=== PATIENT | male | born 1945 | race Caucasian/White ===

== ENCOUNTER 2018-05-11 21:00 | Inpatient (IN) | payer OTHER ==
[~2018-05-11] VITALS: Ht 182.9 cm; Wt 107.8 kg
[~2018-05-11 21:00] MED LIST: FURO80TA PO; GAB400C PO
[2018-05-11 22:13] LABS: Basophils # (auto) 0.1 uL; Basophils % (auto) 0.5 % (0.0-2.0); Eosinophils # (auto) 0 uL; Eosinophils % (auto) 0.2 % (0.0-7.0); Hematocrit 43.2 % (41.0-53.0); Lymphocytes # (auto) 1.2 uL; Lymphocytes % (auto) 8.1 % (10.0-50.0); Mean Corpuscular Hemoglobin 33.6 pg (28.0-32.0); Mean Corpuscular Hgb Conc. 34.7 g/dL (32.0-36.0); Mean Corpuscular Volume 96.9 fL (80.0-100.0); Monocytes # (auto) 1.2 uL; Monocytes % (auto) 8.3 % (0.0-12.0); Neutrophils % (auto) 82.9 % (37.0-80.0); Platelet Count (auto) 367 10^3/uL (140-450); Red Blood Cells 4.46 10^6/uL (4.5-5.90); Red Cell Distribution Width 14.3 % (11.8-14.3); White Blood Cell 14.5 10^3/uL (4.4-10.8)
[2018-05-11 22:32] LABS: INR 0.99 (0.9-1.15); Partial Thromboplastin Time 32.1 sec (23.78-33.04); Prothrombin Time 10.6 sec (9.27-12.13)
[2018-05-11 22:35] LABS: Albumin 3.3 g/dL (3.4-5.0); BUN/Creatinine Ratio 25.3; Bilirubin, Total 0.5 mg/dL (0.2-1.0); Total Protein 9.2 g/dL (6.4-8.2)
[2018-05-11 22:46] LABS: Potassium 1.9 mmol/L (3.5-5.1)
[2018-05-11] MEDS ORDERED: POTASSIUM CHL 20 Meq TABLET PO ONE (23:00)
[2018-05-12] MEDS ORDERED: VANCOMYCIN 1GM/250ML 250 ML IV ONE (00:30)
[2018-05-12] MEDS ORDERED: fentaNYL CITRATE 100 MCG/2 ML VL IV ONE (00:30)
[2018-05-12 01:04] LABS: Urine Bacteria NONE SEEN /hpf (None Seen); Urine Blood Negative /uL (Negative); Urine Hyaline Cast FEW /lpf (0 - 2); Urine Specific Gravity 1.017 (1.001-1.035); Urine WBC <1 /hpf (0 - 3)
[2018-05-12 01:16] LABS: Lactic Acid w/Reflex 2.2 mmol/L (0.4-2.0)
[2018-05-12] MEDS: POTASSIUM CHL 20MEQ/100ML 100 ML IV SCH ×2 (02:28→04:40)
[2018-05-12 06:30] LABS: BUN/Creatinine Ratio 29.5; Calcium 11.1 mg/dL (8.5-10.1); Potassium 3.2 mmol/L (3.5-5.1)
[2018-05-12] MEDS ORDERED: cefTRIAXone 1GM/10ml IVPUSH 10 ML IV ONE (09:15)
[2018-05-12] MEDS ORDERED: ONDANSETRON HCL 4 MG/2 ML VIAL IV PRN (09:30)
[2018-05-12] MEDS ORDERED: LACTULOSE 20Gm/30ML SOLN PO PRN (09:30)
[2018-05-12] MEDS ORDERED: DEXTROSE (50%) 50ML SYRG IV PRN (09:30)
[2018-05-12] MEDS: POTASSIUM CHL 20 Meq TABLET PO SCH ×2 (09:40→20:13)
[2018-05-12] MEDS ORDERED: POTASSIUM CHL 20 Meq TABLET PO ONE (09:45)
[2018-05-12] MEDS: ZINC SULFATE 220 MG CAP PO SCH (10:00)
[2018-05-12] MEDS ORDERED: FAMOTIDINE 20 MG TAB PO SCH (10:00)
[2018-05-12] MEDS: FUROSEMIDE 40 MG TAB PO SCH ×2 (10:28→18:07)
[2018-05-12] MEDS: METOPROLOL TARTRATE 25 MG TAB PO SCH ×2 (10:28→20:12)
[2018-05-12] MEDS: CLINDAMYCIN 300MG IV 50 ML IV SCH ×2 (10:28→18:07)
[2018-05-12] MEDS: ASPirin-EC 81 mg tab PO SCH (10:28)
[2018-05-12] MEDS: VENLAFAXINE HCL 37.5mg XR cap PO SCH (10:28)
[2018-05-12] MEDS: METOLAZONE 5 MG TAB PO SCH (10:29)
[2018-05-12] MEDS: ASCORBIC ACID 500 MG TAB PO SCH ×2 (10:29→20:13)
[2018-05-12] MEDS: FAMOTIDINE 20 MG TAB PO SCH (10:29)
[2018-05-12] MEDS: MULTIPLE VITAMIN TAB PO SCH (10:29)
[2018-05-12] MEDS: CALCIUM CARB 500 MG CHEW TAB PO SCH ×2 (10:29→20:12)
[2018-05-12] MEDS: CHOLECALCIFEROL (VITD3) 1,000 UNIT TAB PO SCH (10:29)
[2018-05-12] MEDS: amLODIPine BESYLATE 5 MG TAB PO SCH (10:29)
[2018-05-12] MEDS: ACCU-CHEK COMFORT CURVE STRIP VI SCH ×3 (11:30→21:40)
[2018-05-12] MEDS: InsuLIN REG 1unit/0.01ml Soln (100units/ml) SC SCH ×3 (12:40→21:40)
[2018-05-12] MEDS: SODIUM CHLOR 0.9% PF (SALINE LOCK) 10ML VIAL/SYR IV SCH ×2 (13:43→20:13)
[2018-05-12] MEDS: GABAPENTIN 300 MG CAP PO SCH ×2 (13:43→20:12)
[2018-05-12] MEDS: HYDROcodone-ACET 10/325MG TAB PO PRN (16:16)
[2018-05-12 17:00] VITALS: BP 116/61
[2018-05-12 17:18] VITALS: BP 116/61
[2018-05-12] MEDS: TAMSULOSIN HYDROCHLORIDE 0.4 MG CAP PO SCH (18:07)
[2018-05-12] MEDS ORDERED: VENL37.572 PO (18:48)
[2018-05-12] MEDS ORDERED: FURO40TA4 PO (18:48)
[2018-05-12] MEDS ORDERED: METO2.5T11 PO (18:48)
[2018-05-12] MEDS ORDERED: GABA-339 PO (18:48)
[2018-05-12] MEDS ORDERED: SIMV-8 PO (18:48)
[2018-05-12] MEDS ORDERED: POTA10TA51 PO (18:48)
[2018-05-12] MEDS ORDERED: AMLO5TAB2 PO (18:48)
[2018-05-12] MEDS ORDERED: TAMS0.4C36 PO (18:48)
[2018-05-12] MEDS ORDERED: CHOL20007 OR (18:48)
[2018-05-12] MEDS ORDERED: METO25TA5 PO (18:48)
[2018-05-12] MEDS ORDERED: ASPI81TA27 PO (18:48)
[2018-05-12] MEDS ORDERED: DOCU100T15 PO (18:48)
[2018-05-12] MEDS ORDERED: HYDR-4683 PO (18:48)
[2018-05-12] MEDS: TEMAZEPAM 15 MG CAP PO PRN (20:11)
[2018-05-12] MEDS: ACETAMINOPHEN 325 MG TAB PO PRN (20:13)
[2018-05-12 21:52] VITALS: BP 137/65
[2018-05-12] MEDS ORDERED: ATORVASTATIN 20 MG TAB PO SCH (22:00)
[2018-05-13] MEDS: HYDROcodone-ACET 10/325MG TAB PO PRN ×3 (00:48→22:08)
[2018-05-13] MEDS: CLINDAMYCIN 300MG IV 50 ML IV SCH ×3 (02:28→17:49)
[2018-05-13 04:46] VITALS: BP 135/71
[2018-05-13 05:39] LABS: Basophils # (auto) 0.1 uL; Basophils % (auto) 0.4 % (0.0-2.0); Eosinophils # (auto) 0.1 uL; Eosinophils % (auto) 0.8 % (0.0-7.0); Hematocrit 41.3 % (41.0-53.0); Hemoglobin 14.1 g/dL (13.5-17.5); Lymphocytes # (auto) 1.1 uL; Lymphocytes % (auto) 7.2 % (10.0-50.0); Mean Corpuscular Hemoglobin 33.2 pg (28.0-32.0); Mean Corpuscular Hgb Conc. 34.2 g/dL (32.0-36.0); Mean Corpuscular Volume 97.1 fL (80.0-100.0); Monocytes # (auto) 1.3 uL; Neutrophils # (auto) 13.3 uL; Neutrophils % (auto) 83.6 % (37.0-80.0); Platelet Count (auto) 361 10^3/uL (140-450); Red Blood Cells 4.25 10^6/uL (4.5-5.90); Red Cell Distribution Width 14.5 % (11.8-14.3)
[2018-05-13] MEDS: FUROSEMIDE 40 MG TAB PO SCH (05:49)
[2018-05-13] MEDS: SODIUM CHLOR 0.9% PF (SALINE LOCK) 10ML VIAL/SYR IV SCH ×3 (05:49→22:09)
[2018-05-13] MEDS: ACCU-CHEK COMFORT CURVE STRIP VI SCH ×4 (05:50→22:09)
[2018-05-13] MEDS: GABAPENTIN 300 MG CAP PO SCH ×3 (05:50→22:08)
[2018-05-13] MEDS: ACETAMINOPHEN 325 MG TAB PO PRN (05:50)
[2018-05-13] MEDS: InsuLIN REG 1unit/0.01ml Soln (100units/ml) SC SCH ×4 (05:51→22:09)
[2018-05-13 05:59] LABS: Albumin 2.9 g/dL (3.4-5.0); BUN/Creatinine Ratio 37.1; Bilirubin, Total 0.4 mg/dL (0.2-1.0); Calcium 10.5 mg/dL (8.5-10.1); Total Protein 8.1 g/dL (6.4-8.2)
[2018-05-13] MEDS ORDERED: POTASSIUM CHL 20 Meq TABLET PO ONE ×2 (07:15→13:15)
[2018-05-13 08:25] VITALS: BP 121/68
[2018-05-13] MEDS: cefTRIAXone 1GM/10ml IVPUSH 10 ML IV SCH (08:59)
[2018-05-13] MEDS: ASPirin-EC 81 mg tab PO SCH (08:59)
[2018-05-13] MEDS: VENLAFAXINE HCL 37.5mg XR cap PO SCH (09:00)
[2018-05-13] MEDS: POTASSIUM CHL 20 Meq TABLET PO SCH (09:00)
[2018-05-13] MEDS: METOPROLOL TARTRATE 25 MG TAB PO SCH (09:01)
[2018-05-13] MEDS: MULTIPLE VITAMIN TAB PO SCH (09:01)
[2018-05-13] MEDS: CALCIUM CARB 500 MG CHEW TAB PO SCH (09:02)
[2018-05-13] MEDS: ASCORBIC ACID 500 MG TAB PO SCH ×2 (09:02→22:08)
[2018-05-13] MEDS: FAMOTIDINE 20 MG TAB PO SCH (09:02)
[2018-05-13] MEDS: amLODIPine BESYLATE 5 MG TAB PO SCH (09:02)
[2018-05-13] MEDS: METOLAZONE 5 MG TAB PO SCH (09:03)
[2018-05-13] MEDS: CHOLECALCIFEROL (VITD3) 1,000 UNIT TAB PO SCH (09:03)
[2018-05-13 09:50] LABS: Folate (Folic Acid) 9.3 ng/mL (5.38-24)
[2018-05-13] MEDS: SODIUM CHLORIDE 0.9% 1,000 ML IV SCH (12:15)
[2018-05-13 13:00] VITALS: BP 120/65
[2018-05-13 13:06] LABS: Magnesium 2.8 mg/dL (1.6-2.6)
[2018-05-13 13:10] LABS: Potassium 2.7 mmol/L (3.5-5.1)
[2018-05-13] MEDS ORDERED: POTASSIUM CHLORIDE IV ONE (13:30)
[2018-05-13] MEDS ORDERED: D5W 5% IV ONE (13:30)
[2018-05-13] MEDS: SILVER SULFADIAZINE 1 % TOPICAL CREAM 50GM TOP SCH (14:16)
[2018-05-13] MEDS: POTASSIUM CHL 20MEQ/100ML 100 ML IV SCH ×2 (15:20→17:48)
[2018-05-13] MEDS: ZINC SULFATE 220 MG CAP PO SCH (15:47)
[2018-05-13 17:10] VITALS: BP 117/76
[2018-05-13] MEDS: TAMSULOSIN HYDROCHLORIDE 0.4 MG CAP PO SCH (17:49)
[2018-05-13 22:00] VITALS: BP 114/67
[2018-05-13] MEDS: TEMAZEPAM 15 MG CAP PO PRN (22:09)
[2018-05-14] MEDS: CLINDAMYCIN 300MG IV 50 ML IV SCH ×3 (02:14→17:04)
[2018-05-14] MEDS: GABAPENTIN 300 MG CAP PO SCH ×3 (05:05→21:30)
[2018-05-14] MEDS: SODIUM CHLOR 0.9% PF (SALINE LOCK) 10ML VIAL/SYR IV SCH ×3 (05:05→21:30)
[2018-05-14] MEDS: HYDROcodone-ACET 10/325MG TAB PO PRN ×3 (05:06→21:33)
[2018-05-14 06:02] VITALS: BP 117/70
[2018-05-14 06:05] LABS: BUN/Creatinine Ratio 39.8; Calcium 10.5 mg/dL (8.5-10.1); Magnesium 2.4 mg/dL (1.6-2.6)
[2018-05-14 06:16] LABS: Potassium 2.4 mmol/L (3.5-5.1)
[2018-05-14 06:24] LABS: Basophils # (auto) 0.1 uL; Basophils % (auto) 0.5 % (0.0-2.0); Eosinophils # (auto) 0.2 uL; Eosinophils % (auto) 1.8 % (0.0-7.0); Hematocrit 42.1 % (41.0-53.0); Hemoglobin 14.2 g/dL (13.5-17.5); Lymphocytes # (auto) 1.1 uL; Lymphocytes % (auto) 7.6 % (10.0-50.0); Mean Corpuscular Hemoglobin 32.9 pg (28.0-32.0); Mean Corpuscular Hgb Conc. 33.8 g/dL (32.0-36.0); Mean Corpuscular Volume 97.3 fL (80.0-100.0); Monocytes # (auto) 1.1 uL; Neutrophils # (auto) 11.4 uL; Neutrophils % (auto) 82.1 % (37.0-80.0); Platelet Count (auto) 391 10^3/uL (140-450); Red Blood Cells 4.32 10^6/uL (4.5-5.90); Red Cell Distribution Width 14.5 % (11.8-14.3); White Blood Cell 13.9 10^3/uL (4.4-10.8)
[2018-05-14] MEDS: ACCU-CHEK COMFORT CURVE STRIP VI SCH ×4 (06:45→21:31)
[2018-05-14] MEDS ORDERED: POTASSIUM CHL 20 Meq TABLET PO ONE ×2 (06:45→14:15)
[2018-05-14] MEDS: InsuLIN REG 1unit/0.01ml Soln (100units/ml) SC SCH ×4 (06:45→21:31)
[2018-05-14 09:08] VITALS: BP 104/75
[2018-05-14] MEDS: SODIUM CHLORIDE 0.9% 1,000 ML IV SCH (09:29)
[2018-05-14] MEDS: ASCORBIC ACID 500 MG TAB PO SCH ×2 (09:29→21:30)
[2018-05-14] MEDS: MULTIPLE VITAMIN TAB PO SCH (09:29)
[2018-05-14] MEDS: cefTRIAXone 1GM/10ml IVPUSH 10 ML IV SCH (09:29)
[2018-05-14] MEDS: FAMOTIDINE 20 MG TAB PO SCH (09:29)
[2018-05-14] MEDS: VENLAFAXINE HCL 37.5mg XR cap PO SCH (09:29)
[2018-05-14] MEDS: ASPirin-EC 81 mg tab PO SCH (09:30)
[2018-05-14] MEDS: SILVER SULFADIAZINE 1 % TOPICAL CREAM 50GM TOP SCH (09:30)
[2018-05-14] MEDS: ZINC SULFATE 220 MG CAP PO SCH (09:30)
[2018-05-14] MEDS ORDERED: PANTOPRAZOLE 40 MG TAB PO ONE (12:00)
[2018-05-14 13:00] VITALS: BP 112/62
[2018-05-14] MEDS ORDERED: POTASSIUM CHLORIDE 60 MEQ, LIDOCAINE 1% (LOCAL ANESTH.) 6 ML in SODIUM CHL 0.9% 500 ML IV ONE (14:15)
[2018-05-14] MEDS: POTASSIUM CHL 20MEQ/100ML 100 ML IV SCH ×3 (14:38→21:30)
[2018-05-14] MEDS: DOCUSATE SOD 100 MG CAP PO PRN (17:03)
[2018-05-14] MEDS: TAMSULOSIN HYDROCHLORIDE 0.4 MG CAP PO SCH (17:03)
[2018-05-14 17:18] VITALS: BP 118/62
[2018-05-14 21:30] VITALS: BP 130/72
[2018-05-15] MEDS: TEMAZEPAM 15 MG CAP PO PRN ×2 (00:03→21:31)
[2018-05-15] MEDS: CLINDAMYCIN 300MG IV 50 ML IV SCH ×3 (02:16→16:49)
[2018-05-15] MEDS: HYDROcodone-ACET 10/325MG TAB PO PRN ×3 (02:59→21:31)
[2018-05-15] MEDS: SODIUM CHLORIDE 0.9% 1,000 ML IV SCH (04:04)
[2018-05-15 05:00] VITALS: BP 115/60
[2018-05-15] MEDS: SODIUM CHLOR 0.9% PF (SALINE LOCK) 10ML VIAL/SYR IV SCH ×3 (06:05→21:30)
[2018-05-15] MEDS: GABAPENTIN 300 MG CAP PO SCH ×3 (06:05→21:30)
[2018-05-15] MEDS: ACCU-CHEK COMFORT CURVE STRIP VI SCH ×4 (06:05→21:30)
[2018-05-15] MEDS: InsuLIN REG 1unit/0.01ml Soln (100units/ml) SC SCH ×4 (06:06→21:31)
[2018-05-15 06:39] LABS: Basophils # (auto) 0.1 uL; Basophils % (auto) 0.5 % (0.0-2.0); Eosinophils # (auto) 0.3 uL; Eosinophils % (auto) 2.2 % (0.0-7.0); Hematocrit 36.1 % (41.0-53.0); Hemoglobin 12.4 g/dL (13.5-17.5); Lymphocytes # (auto) 0.9 uL; Lymphocytes % (auto) 7.7 % (10.0-50.0); Mean Corpuscular Hemoglobin 33.4 pg (28.0-32.0); Mean Corpuscular Hgb Conc. 34.3 g/dL (32.0-36.0); Mean Corpuscular Volume 97.3 fL (80.0-100.0); Monocytes # (auto) 0.9 uL; Monocytes % (auto) 7.9 % (0.0-12.0); Neutrophils # (auto) 9.3 uL; Neutrophils % (auto) 81.7 % (37.0-80.0); Platelet Count (auto) 338 10^3/uL (140-450); Red Blood Cells 3.71 10^6/uL (4.5-5.90); Red Cell Distribution Width 14.4 % (11.8-14.3); White Blood Cell 11.3 10^3/uL (4.4-10.8)
[2018-05-15 06:56] LABS: BUN/Creatinine Ratio 38.5; Calcium 8.8 mg/dL (8.5-10.1)
[2018-05-15 07:03] LABS: Potassium 2.2 mmol/L (3.5-5.1)
[2018-05-15] MEDS ORDERED: POTASSIUM CHL 20 Meq TABLET PO ONE ×4 (08:00→16:00)
[2018-05-15] MEDS: cefTRIAXone 1GM/10ml IVPUSH 10 ML IV SCH (08:03)
[2018-05-15 09:00] VITALS: BP 110/68
[2018-05-15] MEDS: ZINC SULFATE 220 MG CAP PO SCH (09:21)
[2018-05-15] MEDS: DOCUSATE SOD 100 MG CAP PO PRN (09:21)
[2018-05-15] MEDS: ASPirin-EC 81 mg tab PO SCH (09:21)
[2018-05-15] MEDS: PANTOPRAZOLE 40 MG TAB PO SCH (09:22)
[2018-05-15] MEDS: ASCORBIC ACID 500 MG TAB PO SCH ×2 (09:22→21:30)
[2018-05-15] MEDS: MULTIPLE VITAMIN TAB PO SCH (09:22)
[2018-05-15] MEDS: VENLAFAXINE HCL 37.5mg XR cap PO SCH (09:23)
[2018-05-15] MEDS: SILVER SULFADIAZINE 1 % TOPICAL CREAM 50GM TOP SCH (09:23)
[2018-05-15] MEDS ORDERED: LACTULOSE 20Gm/30ML SOLN PO ONE (12:15)
[2018-05-15] MEDS: POTASSIUM CHL 20 Meq TABLET PO SCH ×2 (12:26→21:30)
[2018-05-15 13:00] VITALS: BP 117/71
[2018-05-15] MEDS: TAMSULOSIN HYDROCHLORIDE 0.4 MG CAP PO SCH (16:49)
[2018-05-15 17:09] VITALS: BP 119/70
[2018-05-15 22:00] VITALS: BP 127/67
[2018-05-16] MEDS: ACETAMINOPHEN 325 MG TAB PO PRN (01:26)
[2018-05-16] MEDS: CLINDAMYCIN 300MG IV 50 ML IV SCH ×2 (02:15→09:06)
[2018-05-16 05:00] VITALS: BP 137/74
[2018-05-16] MEDS: SODIUM CHLOR 0.9% PF (SALINE LOCK) 10ML VIAL/SYR IV SCH ×3 (06:06→21:26)
[2018-05-16] MEDS: ACCU-CHEK COMFORT CURVE STRIP VI SCH ×4 (06:29→21:26)
[2018-05-16] MEDS: GABAPENTIN 300 MG CAP PO SCH ×3 (06:29→21:24)
[2018-05-16] MEDS: InsuLIN REG 1unit/0.01ml Soln (100units/ml) SC SCH ×4 (06:29→21:39)
[2018-05-16 08:06] LABS: Basophils # (auto) 0.1 uL; Basophils % (auto) 0.4 % (0.0-2.0); Calcium 10.3 mg/dL (8.5-10.1); Eosinophils # (auto) 0.3 uL; Eosinophils % (auto) 1.8 % (0.0-7.0); Hemoglobin 12.8 g/dL (13.5-17.5); Lymphocytes # (auto) 1.1 uL; Mean Corpuscular Hemoglobin 33.1 pg (28.0-32.0); Mean Corpuscular Hgb Conc. 33.7 g/dL (32.0-36.0); Mean Corpuscular Volume 98.2 fL (80.0-100.0); Monocytes # (auto) 1.2 uL; Monocytes % (auto) 8.7 % (0.0-12.0); Neutrophils # (auto) 11.4 uL; Neutrophils % (auto) 81.1 % (37.0-80.0); Nucleated Red Blood Cells % 0.1 %; Platelet Count (auto) 414 10^3/uL (140-450); Red Blood Cells 3.87 10^6/uL (4.5-5.90); Red Cell Distribution Width 14.5 % (11.8-14.3); White Blood Cell 14.1 10^3/uL (4.4-10.8)
[2018-05-16 08:11] LABS: Potassium 2.8 mmol/L (3.5-5.1)
[2018-05-16] MEDS ORDERED: POTASSIUM CHL 20 Meq TABLET PO ONE ×3 (08:45→18:00)
[2018-05-16 09:00] VITALS: BP 131/69
[2018-05-16] MEDS: PANTOPRAZOLE 40 MG TAB PO SCH (09:05)
[2018-05-16] MEDS: ZINC SULFATE 220 MG CAP PO SCH (09:05)
[2018-05-16] MEDS: ASCORBIC ACID 500 MG TAB PO SCH ×2 (09:05→21:25)
[2018-05-16] MEDS: ASPirin-EC 81 mg tab PO SCH (09:05)
[2018-05-16] MEDS: cefTRIAXone 1GM/10ml IVPUSH 10 ML IV SCH (09:05)
[2018-05-16] MEDS: POTASSIUM CHL 20 Meq TABLET PO SCH ×2 (09:06→21:25)
[2018-05-16] MEDS: MULTIPLE VITAMIN TAB PO SCH (09:06)
[2018-05-16] MEDS: VENLAFAXINE HCL 37.5mg XR cap PO SCH (09:06)
[2018-05-16] MEDS: SILVER SULFADIAZINE 1 % TOPICAL CREAM 50GM TOP SCH (09:07)
[2018-05-16 12:31] VITALS: BP 121/79
[2018-05-16] MEDS ORDERED: VANCOMYCIN PER PHARMACY 0 MG IV SCH (13:45)
[2018-05-16] MEDS: VANCOMYCIN 1GM/250ML 250 ML IV SCH (15:21)
[2018-05-16 17:00] VITALS: BP 106/70
[2018-05-16] MEDS: TAMSULOSIN HYDROCHLORIDE 0.4 MG CAP PO SCH (17:23)
[2018-05-16] MEDS: POTASSIUM CHL 20MEQ/100ML 100 ML IV SCH ×2 (18:22→20:38)
[2018-05-16] MEDS: HYDROcodone-ACET 10/325MG TAB PO PRN (20:38)
[2018-05-16] MEDS: TEMAZEPAM 15 MG CAP PO PRN (21:25)
[2018-05-16 21:38] VITALS: BP 133/72
[2018-05-17] MEDS: VANCOMYCIN 1GM/250ML 250 ML IV SCH ×2 (03:04→15:19)
[2018-05-17 04:18] VITALS: BP 149/73
[2018-05-17] MEDS: GABAPENTIN 300 MG CAP PO SCH ×3 (05:51→21:26)
[2018-05-17] MEDS: HYDROcodone-ACET 10/325MG TAB PO PRN ×2 (05:51→17:37)
[2018-05-17] MEDS: ACCU-CHEK COMFORT CURVE STRIP VI SCH ×4 (06:05→21:27)
[2018-05-17] MEDS: InsuLIN REG 1unit/0.01ml Soln (100units/ml) SC SCH ×4 (06:05→22:00)
[2018-05-17] MEDS: SODIUM CHLOR 0.9% PF (SALINE LOCK) 10ML VIAL/SYR IV SCH ×3 (06:05→21:26)
[2018-05-17 08:33] LABS: BUN/Creatinine Ratio 30.9; Calcium 10.4 mg/dL (8.5-10.1)
[2018-05-17 08:39] LABS: Potassium 2.9 mmol/L (3.5-5.1)
[2018-05-17 09:05] VITALS: BP 125/77
[2018-05-17] MEDS: ZINC SULFATE 220 MG CAP PO SCH (10:33)
[2018-05-17] MEDS: PANTOPRAZOLE 40 MG TAB PO SCH (10:33)
[2018-05-17] MEDS: SILVER SULFADIAZINE 1 % TOPICAL CREAM 50GM TOP SCH (10:33)
[2018-05-17] MEDS: ASPirin-EC 81 mg tab PO SCH (10:33)
[2018-05-17] MEDS: MULTIPLE VITAMIN TAB PO SCH (10:33)
[2018-05-17] MEDS: ASCORBIC ACID 500 MG TAB PO SCH ×2 (10:33→21:26)
[2018-05-17] MEDS: VENLAFAXINE HCL 37.5mg XR cap PO SCH (10:34)
[2018-05-17] MEDS: POTASSIUM CHL 20 Meq TABLET PO SCH ×2 (10:34→21:26)
[2018-05-17] MEDS: cefTRIAXone 1GM/10ml IVPUSH 10 ML IV SCH (10:48)
[2018-05-17] MEDS: SPIRONOLACTONE 25 MG TAB PO SCH ×2 (10:49→17:35)
[2018-05-17] MEDS: POTASSIUM CHL 20MEQ/100ML 100 ML IV SCH ×2 (10:49→12:45)
[2018-05-17] MEDS ORDERED: ENOXAPARIN SOD 40 MG/0.4 ML SYRINGE SC ONE (11:45)
[2018-05-17 12:43] VITALS: BP 145/65
[2018-05-17 12:45] LABS: Basophils # (auto) 0 uL; Basophils % (auto) 0.5 % (0.0-2.0); Eosinophils # (auto) 0.3 uL; Eosinophils % (auto) 2.5 % (0.0-7.0); Hematocrit 40.5 % (41.0-53.0); Hemoglobin 13.8 g/dL (13.5-17.5); Lymphocytes # (auto) 1.2 uL; Lymphocytes % (auto) 11.3 % (10.0-50.0); Mean Corpuscular Hemoglobin 33.2 pg (28.0-32.0); Mean Corpuscular Hgb Conc. 34.1 g/dL (32.0-36.0); Mean Corpuscular Volume 97.2 fL (80.0-100.0); Monocytes % (auto) 9.2 % (0.0-12.0); Neutrophils # (auto) 8.1 uL; Neutrophils % (auto) 76.5 % (37.0-80.0); Platelet Count (auto) 379 10^3/uL (140-450); Red Blood Cells 4.17 10^6/uL (4.5-5.90); Red Cell Distribution Width 14.7 % (11.8-14.3); White Blood Cell 10.6 10^3/uL (4.4-10.8)
[2018-05-17 12:56] LABS: INR 1.01 (0.9-1.15); Prothrombin Time 10.8 sec (9.27-12.13)
[2018-05-17 17:00] VITALS: BP 157/73
[2018-05-17] MEDS ORDERED: WARFARIN SODIUM 2.5 MG TAB PO ONE (17:00)
[2018-05-17] MEDS: TAMSULOSIN HYDROCHLORIDE 0.4 MG CAP PO SCH (17:35)
[2018-05-18] MEDS: HYDROcodone-ACET 10/325MG TAB PO PRN ×2 (01:27→10:46)
[2018-05-18 02:46] LABS: Basophils # (auto) 0.1 uL; Basophils % (auto) 0.8 % (0.0-2.0); Eosinophils # (auto) 0.2 uL; Eosinophils % (auto) 2.4 % (0.0-7.0); Hematocrit 37.8 % (41.0-53.0); Hemoglobin 13.3 g/dL (13.5-17.5); Lymphocytes # (auto) 1.3 uL; Lymphocytes % (auto) 13.6 % (10.0-50.0); Mean Corpuscular Hemoglobin 33.8 pg (28.0-32.0); Mean Corpuscular Hgb Conc. 35.2 g/dL (32.0-36.0); Monocytes # (auto) 0.8 uL; Monocytes % (auto) 7.8 % (0.0-12.0); Neutrophils # (auto) 7.2 uL; Neutrophils % (auto) 75.4 % (37.0-80.0); Platelet Count (auto) 358 10^3/uL (140-450); Red Blood Cells 3.94 10^6/uL (4.5-5.90); Red Cell Distribution Width 14.5 % (11.8-14.3); White Blood Cell 9.6 10^3/uL (4.4-10.8)
[2018-05-18 02:50] LABS: INR 1.02 (0.9-1.15); Prothrombin Time 10.9 sec (9.27-12.13)
[2018-05-18 03:21] LABS: Potassium 3.4 mmol/L (3.5-5.1)
[2018-05-18 03:26] LABS: Albumin 2.8 g/dL (3.4-5.0); BUN/Creatinine Ratio 23.5; Calcium 9.8 mg/dL (8.5-10.1)
[2018-05-18 03:29] LABS: Bilirubin, Total 0.3 mg/dL (0.2-1.0); Total Protein 6.3 g/dL (6.4-8.2)
[2018-05-18] MEDS: VANCOMYCIN 1GM/250ML 250 ML IV SCH (03:40)
[2018-05-18 05:00] VITALS: BP 95/70
[2018-05-18] MEDS: SODIUM CHLOR 0.9% PF (SALINE LOCK) 10ML VIAL/SYR IV SCH ×2 (05:28→14:12)
[2018-05-18] MEDS: SPIRONOLACTONE 25 MG TAB PO SCH (05:29)
[2018-05-18] MEDS: GABAPENTIN 300 MG CAP PO SCH ×2 (05:29→14:11)
[2018-05-18] MEDS: InsuLIN REG 1unit/0.01ml Soln (100units/ml) SC SCH ×3 (06:14→17:00)
[2018-05-18] MEDS: ACCU-CHEK COMFORT CURVE STRIP VI SCH ×3 (06:14→19:50)
[2018-05-18 08:00] VITALS: BP 129/80
[2018-05-18] MEDS: VENLAFAXINE HCL 37.5mg XR cap PO SCH (10:00)
[2018-05-18] MEDS ORDERED: ENOXAPARIN SOD 40 MG/0.4 ML SYRINGE SC SCH (10:00)
[2018-05-18] MEDS: ASPirin-EC 81 mg tab PO SCH (10:45)
[2018-05-18] MEDS: PANTOPRAZOLE 40 MG TAB PO SCH (10:45)
[2018-05-18] MEDS: ASCORBIC ACID 500 MG TAB PO SCH (10:46)
[2018-05-18] MEDS: ZINC SULFATE 220 MG CAP PO SCH (10:46)
[2018-05-18] MEDS: POTASSIUM CHL 20 Meq TABLET PO SCH (10:47)
[2018-05-18] MEDS: MULTIPLE VITAMIN TAB PO SCH (10:47)
[2018-05-18] MEDS: SILVER SULFADIAZINE 1 % TOPICAL CREAM 50GM TOP SCH (10:48)
[2018-05-18 12:00] VITALS: BP 143/68
[2018-05-18] MEDS ORDERED: POTASSIUM CHL 20 Meq TABLET PO ONE (13:00)
[2018-05-18] MEDS ORDERED: DOXYCYCLINE 100 MG TAB/CAP PO ONE (13:15)
[2018-05-18 15:00] VITALS: BP 110/68
[2018-05-18] MEDS ORDERED: WARFARIN SODIUM 10 MG TAB PO ONE (17:00)
[2018-05-18] MEDS: TAMSULOSIN HYDROCHLORIDE 0.4 MG CAP PO SCH (19:51)
[2018-05-18] MEDS ORDERED: METOPROLOL TARTRATE 25 MG TAB PO SCH (22:00)
[2018-05-18] MEDS ORDERED: APIXABAN 5 MG TAB PO SCH (22:00)
[2018-05-18] MEDS ORDERED: DOXYCYCLINE 100 MG TAB/CAP PO SCH (22:00)
== END 2018-05-18 19:25 | disposition left against medical advice (07) | DRG 871 ==
LOC: EDBD 21:00 → ER 21:00 → OVERFLOW 21:01 → EAST 05-12 16:39 → TELE-EAST 05-16 08:48
PROVIDERS: ADMIT Internal Medicine; ATTEND Internal Medicine
DX: A41.9 Sepsis, unspecified organism (principal); N17.0 Acute kidney failure with tubular necrosis; G93.41 Metabolic encephalopathy; J96.21 Acute and chronic respiratory failure with hypoxia; D68.69 Other thrombophilia; E44.1 Mild protein-calorie malnutrition; E87.1 Hypo-osmolality and hyponatremia; I48.92 Unspecified atrial flutter; I50.32 Chronic diastolic (congestive) heart failure; I13.0 Hypertensive heart and chronic kidney disease with heart failure and stage 1 through stage 4 chronic kidney disease, or unspecified chronic kidney disease; S09.90XA Unspecified injury of head, initial encounter; S90.822A Blister (nonthermal), left foot, initial encounter; S90.821A Blister (nonthermal), right foot, initial encounter; E11.21 Type 2 diabetes mellitus with diabetic nephropathy; E78.5 Hyperlipidemia, unspecified; E87.6 Hypokalemia; F03.90 Unspecified dementia, unspecified severity, without behavioral disturbance, psychotic disturbance, mood disturbance, and anxiety; E11.42 Type 2 diabetes mellitus with diabetic polyneuropathy; N18.9 Chronic kidney disease, unspecified; B95.62 Methicillin resistant Staphylococcus aureus infection as the cause of diseases classified elsewhere; E11.22 Type 2 diabetes mellitus with diabetic chronic kidney disease; E11.621 Type 2 diabetes mellitus with foot ulcer; E66.9 Obesity, unspecified; I48.0 Paroxysmal atrial fibrillation; T25.121A Burn of first degree of right foot, initial encounter; T25.122A Burn of first degree of left foot, initial encounter; X08.8XXA Exposure to other specified smoke, fire and flames, initial encounter; I49.5 Sick sinus syndrome; W18.39XA Other fall on same level, initial encounter; Z66 Do not resuscitate; Z91.19 Patient's noncompliance with other medical treatment and regimen; Y93.89 Activity, other specified; Y92.89 Other specified places as the place of occurrence of the external cause; Z68.32 Body mass index [BMI] 32.0-32.9, adult
CPT/HCPCS: 36415; 70450; 71045; 73630; 80048; 80053; 80202; 81001; 82088; 82607; 82746; 82962; 83036; 83605; 83735; 83880; 84132; 84443; 84484; 85025; 85379; 85610; 85730; 87040; 87077; 87186; 87205; 93005; 93306; 93886; 93926; 93970; 95819; 96365; 96366; 96367; 96375; G0378; J1815; J2001; J3480; J3490; J7060